=== PATIENT | female | born 1980 | race Caucasian/White ===

== ENCOUNTER 2017-10-23 03:05 | Emergency (ER) | payer SELFPAY ==
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
[2017-10-23 03:29] VITALS: BP 117/73
== END 2017-10-23 03:28 | disposition home or self-care (01) ==
LOC: ER 03:05
DX: F10.120 Alcohol abuse with intoxication, uncomplicated (principal); F17.210 Nicotine dependence, cigarettes, uncomplicated; S40.022A Contusion of left upper arm, initial encounter; S40.021A Contusion of right upper arm, initial encounter; S80.12XA Contusion of left lower leg, initial encounter; S80.11XA Contusion of right lower leg, initial encounter; X58.XXXA Exposure to other specified factors, initial encounter
CPT/HCPCS: 99284